=== PATIENT | male | born 2000 | race Caucasian/White ===

== ENCOUNTER 2022-05-03 22:27 | Emergency (ER) | payer SELFPAY ==
[~2022-05-03] VITALS: Ht 180.3 cm; Wt 81.6 kg
[2022-05-03] MEDS ORDERED: ACETAMINOPHEN 325 MG TAB PO ONE (23:00)
[2022-05-03] MEDS ORDERED: ACETAMINOPHEN 325 MG TAB ONE (23:01)
[2022-05-03] MEDS ORDERED: ONDANSETRON HCL 4 MG ORAL DISINTEGRATING TAB ONE (23:01)
[2022-05-03] MEDS ORDERED: MUCINEX DM ER1 EACH PO (23:46)
== END 2022-05-03 23:51 | disposition home or self-care (01) ==
LOC: ER 22:32
DX: R50.9 Fever, unspecified (principal); J06.9 Acute upper respiratory infection, unspecified; R11.0 Nausea; R51.9 Headache, unspecified; Z20.822 Contact with and (suspected) exposure to COVID-19
CPT/HCPCS: 99283; Q0162; U0002